=== PATIENT | male | born 1955 | race Caucasian/White ===

== ENCOUNTER 2017-02-17 20:08 | Observation (INO) | payer SELFPAY ==
[~2017-02-17] VITALS: Ht 182.9 cm; Wt 94.3 kg
[2017-02-17] MEDS ORDERED: VALS320T PO (20:47)
[2017-02-17] MEDS ORDERED: ASPI325T4 PO (20:47)
[2017-02-17] MEDS ORDERED: [UNRECOGNIZED DRUG - OTHER] PO (20:55)
[2017-02-17] MEDS ORDERED: SODIUM CHLORIDE 0.9% 1000ML 1,000 ML IV STA (21:02)
[2017-02-17 21:28] LABS: BASO % 0.2 %; BASO ABS # 0.02 K/uL (0-0.2); COMPLETE YES; EOS % 0.6 %; HEMATOCRIT 45.1 % (42-52); IG% 0.2 %; LYMPH ABS # 1.24 K/uL (1.2-3.4); MEAN CELL VOLUME 88.3 fL (80-100); MEAN CORPUSCULAR HEMOGLOBIN 30.3 pg (25-34); MEAN CORPUSCULAR HGB CONC 34.4 g/dl (32-36); MEAN PLATELET VOLUME 9.6 fL (7.4-10.4); MONO % 6.4 %; NEUT % 77.6 %; PLATELET COUNT 218 K/uL (130-400); RED BLOOD COUNT 5.11 M/uL (4.7-6.1); WHITE BLOOD COUNT 8.27 K/uL (4.8-10.8)
--- NOTE | 2017-02-17 21:42 | DIAGNOSTIC IMAGING REPORT ---
HEAD CT NONCONTRAST CT DOSE: 614.27 mGy.cm HISTORY: Altered mental status. TECHNIQUE: Multiaxial CT images of the head were performed without the use of intravenous contrast. Automated exposure control was utilized for this study. A dose lowering technique was utilized adhering to the principles of ALARA. Comparison: None. Findings: The paranasal sinuses and mastoid air cells are clear. The calvarium and skull base are intact. The ventricles and sulci are within normal limits. There is no mass, hematoma, midline shift, or acute infarct. Impression: No acute intracranial abnormality. Electronically signed by: Jeff Hinson M.D. 02/17/2017 9:40 PM Dictated Date/Time: 02/17/2017 9:38 PM
[2017-02-17 21:50] LABS: ALT/SGPT 27 U/L (12-78); BLOOD UREA NITROGEN 24 mg/dl (7-18); BUN/CREATININE RATIO 21.5 (10-20); CALCIUM 9.4 mg/dl (8.5-10.1); CARBON DIOXIDE 29 mmol/L (21-32); CHLORIDE 101 mmol/L (98-107); GLUCOSE 95 mg/dl (70-99); POTASSIUM 4.3 mmol/L (3.5-5.1); SODIUM 136 mmol/L (136-145)
[2017-02-17 21:54] LABS: ALKALINE PHOSPHATASE 93 U/L (45-117); AST/SGOT 22 U/L (15-37)
[2017-02-17 22:39] LABS: URINE APPEARANCE CLEAR (CLEAR); URINE BILIRUBIN NEG (NEG); URINE COLOR YELLOW; URINE EPITHELIAL CELL AUTO 0-5 /lpf (0-5); URINE NITRITE NEG (NEG); URINE SPECIFIC GRAVITY 1.016 (1.000-1.030); UROBILINOGEN NEG (NEG); ZZUR CULT IF INDIC CLEAN CATCH NO
[2017-02-17 22:40] LABS: MANUAL MICROSCOPIC REQUIRED? NO; REVIEW REQ? NO
[2017-02-18] MEDS ORDERED: ONDANSETRON INJ 2 MG/ML 2 ML VIAL IV PRN
[2017-02-18] MEDS ORDERED: NITROGLYCERIN 0.4 MG SL PER TAB CHARGE SL PRN
[2017-02-18] MEDS ORDERED: OXYCODONE/ACETAMINOPHEN 5-325 TAB PO PRN
[2017-02-18] MEDS ORDERED: ACETAMINOPHEN 325 MG TAB PO PRN
[2017-02-18 00:30] VITALS: BP 158/79; PULSE 85; TEMP 37; O2SAT 98; Ht 182.9 cm; Wt 94.3 kg
[2017-02-18] MEDS ORDERED: SODIUM CHLORIDE 0.9% 1000ML 1,000 ML IV ONE (01:00)
[2017-02-18] MEDS ORDERED: PATIENT'S HEIGHT AND/OR WEIGHT NEEDED SCH (01:00)
[2017-02-18 01:13] LABS: PROTHROMBIN TIME (PATIENT) 10.7 SECONDS (9.0-12.0)
[2017-02-18] MEDS ORDERED: IV FLUIDS COMPLETED PRN (01:30)
--- NOTE | 2017-02-18 03:06 | EMERGENCY ROOM VISIT NOTE ---
History Report prepared by Scribe: Odalys Devlin Under the Supervision of: Dr. Sebastián Angelo D.O. First contact with patient: 20:39 Chief Complaint: NEURO SYMPTOMS Stated Complaint: DISORIENTED, LOSS OF MEMORY History of Present Illness The patient is a 61 year old male who presents to the Emergency Room with complaints of persistent neurologic symptoms that started earlier this afternoon. He is accompanied by his and son. His son reports they went cycling this afternoon and when they came back, the patient did not remember what happened over the past 24 hours. He could not remember that he went on a cycling trip today or that he is flying back to [place] this coming Monday after spending 3 weeks here in [place]. The patient denies any recent falls or injuries. He also denies any headache, change in vision, fevers, chest pain, shortness of breath, nausea, vomiting, diarrhea, pain with urination, melena or weakness or numbness in his arms or legs. He admits to a history of hypertension, hyperlipidemia and has undergone an appendectomy. Source of History: patient Onset: This afternoon Position: other (global) Quality: other (neurologic symptoms) Timing: other (persistent) Associated Symptoms: No fevers, No headache, No chest pain, No SOB, No nausea, No vomiting, No diarrhea, No urinary symptoms, No weakness (in arms or legs), No numbness (in arms or legs) Review of Systems See HPI for pertinent positives & negatives. A total of 10 systems reviewed and were otherwise negative. Past Medical & Surgical Medical Problems: (1) Hyperlipemia (2) Hypertension (3) Transient amnesia Surgical Problems: (1) History of appendectomy Family History Hyperlipidemia Hypertension Social History Smoking Status: Never Smoker Alcohol Use: occasionally Drug Use: none Marital Status: Housing Status: lives with family Occupation Status: employed Current/Historical Medications Scheduled Aspirin (Aspirin), 250 MG PO DAILY Valsartan (Diovan), 320 MG PO DAILY [Lercandipin], 20 MG PO DAILY Allergies Coded Allergies: No Known Allergies (Unverified , 02/17/17) Physical Exam Vital Signs Date Time Temp Pulse Resp B/P (MAP) Pulse Ox O2 Delivery O2 Flow Rate FiO2 02/17/17 22:22 82 18 176/91 96 Room Air 02/17/17 20:11 36.4 90 18 173/93 100 Room Air Physical Exam GENERAL: Patient is alert, sitting up in bed, well appearing, well nourished, no distress, non-toxic EYE EXAM: normal conjunctiva, PERRL and EOM's intact OROPHARYNX: no exudate, no erythema, lips, buccal mucosa, and tongue normal and mucous membranes are moist NECK: supple, no nuchal rigidity, no adenopathy, non-tender LUNGS: Clear to auscultation. Normal chest wall mechanics HEART: no murmurs, S1 normal and S2 normal ABDOMEN: abdomen soft, non-tender, normo-active bowel sounds, no masses, no rebound or guarding. BACK: Back is symmetrical on inspection and there is no deformity, no midline tenderness, no CVA tenderness. SKIN: no rashes and no bruising UPPER EXTREMITIES: upper extremities are grossly normal. LOWER EXTREMITIES: No pitting edema. NEURO EXAM: Normal sensorium, cranial nerves II-XII intact, normal speech, no weakness of arms, no weakness of legs. Negative drift. Finger to nose intact. Medical Decision & Procedures ER Provider Diagnostic Interpretation: Radiology results as stated below per my review and the radiologist's interpretation: HEAD CT NONCONTRAST CT DOSE: 614.27 mGy.cm HISTORY: Altered mental status. TECHNIQUE: Multiaxial CT images of the head were performed without the use of intravenous contrast. Automated exposure control was utilized for this study. A dose lowering technique was utilized adhering to the principles of ALARA. Comparison: None. Findings: The paranasal sinuses and mastoid air cells are clear. The calvarium and skull base are intact. The ventricles and sulci are within normal limits. There is no mass, hematoma, midline shift, or acute infarct. Impression: No acute intracranial abnormality. Electronically signed by: Jeff Hinson M.D. 02/17/2017 9:40 PM Laboratory Results 02/17/17 21:15 Red Blood Count 5.11, Mean Corpuscular Volume 88.3, Mean Corpuscular Hemoglobin 30.3, Mean Corpuscular Hemoglobin Concent 34.4, Mean Platelet Volume 9.6, Neutrophils (%) (Auto) 77.6, Lymphocytes (%) (Auto) 15.0, Monocytes (%) (Auto) 6.4, Eosinophils (%) (Auto) 0.6, Basophils (%) (Auto) 0.2, Neutrophils # (Auto) 6.41, Lymphocytes # (Auto) 1.24, Monocytes # (Auto) 0.53, Eosinophils # (Auto) 0.05, Basophils # (Auto) 0.02 02/17/17 21:15 Test 02/17/17 21:15 02/17/17 22:25 02/17/17 22:44 White Blood Count 8.27 K/uL (4.8-10.8) Red Blood Count 5.11 M/uL (4.7-6.1) Hemoglobin 15.5 g/dL (14.0-18.0) Hematocrit 45.1 % (42-52) Mean Corpuscular Volume 88.3 fL (80-100) Mean Corpuscular Hemoglobin 30.3 pg (25-34) Mean Corpuscular Hemoglobin Concent 34.4 g/dl (32-36) Platelet Count 218 K/uL (130-400) Mean Platelet Volume 9.6 fL (7.4-10.4) Neutrophils (%) (Auto) 77.6 % Lymphocytes (%) (Auto) 15.0 % Monocytes (%) (Auto) 6.4 % Eosinophils (%) (Auto) 0.6 % Basophils (%) (Auto) 0.2 % Neutrophils # (Auto) 6.41 K/uL (1.4-6.5) Lymphocytes # (Auto) 1.24 K/uL (1.2-3.4) Monocytes # (Auto) 0.53 K/uL (0.11-0.59) Eosinophils # (Auto) 0.05 K/uL (0-0.5) Basophils # (Auto) 0.02 K/uL (0-0.2) RDW Standard Deviation 46.4 fL (36.4-46.3) RDW Coefficient of Variation 14.2 % (11.5-14.5) Immature Granulocyte % (Auto) 0.2 % Immature Granulocyte # (Auto) 0.02 K/uL (0.00-0.02) Prothrombin Time 10.7 SECONDS (9.0-12.0) Prothromb Time International Ratio 1.0 (0.9-1.1) Anion Gap 6.0 mmol/L (3-11) Estimated GFR () 82.9 Estimated GFR (Non- 71.6 BUN/Creatinine Ratio 21.5 (10-20) Calcium Level 9.4 mg/dl (8.5-10.1) Total Bilirubin 0.3 mg/dl (0.2-1) Direct Bilirubin < 0.1 mg/dl (0-0.2) Aspartate Amino Transf (AST/SGOT) 22 U/L (15-37) Alanine Aminotransferase (ALT/SGPT) 27 U/L (12-78) Alkaline Phosphatase 93 U/L (45-117) Total Creatine Kinase 105 U/L (39-308) Troponin I < 0.015 ng/ml (0-0.045) Total Protein 8.6 gm/dl (6.4-8.2) Albumin 4.7 gm/dl (3.4-5.0) Lipase 1025 U/L (73-393) Urine Color YELLOW Urine Appearance CLEAR (CLEAR) Urine pH 5.0 (4.5-7.5) Urine Specific Baker 1.016 (1.000-1.030) Urine Protein NEG (NEG) Urine Glucose (UA) NEG (NEG) Urine Ketones TRACE (NEG) Urine Occult Blood NEG (NEG) Urine Nitrite NEG (NEG) Urine Bilirubin NEG (NEG) Urine Urobilinogen NEG (NEG) Urine Leukocyte Esterase NEG (NEG) Urine WBC (Auto) 1-5 /hpf (0-5) Urine RBC (Auto) 0-4 /hpf (0-4) Urine Hyaline Casts (Auto) 0 /lpf (0-5) Urine Epithelial Cells (Auto) 0-5 /lpf (0-5) Urine Bacteria (Auto) NEG (NEG) Ethyl Alcohol mg/dL < 3.0 mg/dl (0-3) Laboratory results per my review. Medications Administered Medications (Trade) Dose Ordered Sig/Amita Route Start Time Stop Time Status Last Admin Dose Admin Sodium Chloride 1,000 ml @ 999 mls/hr Q1H1M STAT IV 02/17/17 21:02 02/17/17 22:02 DC 02/17/17 21:25 999 MLS/HR ECG Indication: altered mental status Rate (beats per minute): 84 Rhythm: sinus rhythm Findings: no acute ischemic change, no ectopy, other (normal axis) ED Course ED COURSE: Vital signs were reviewed and showed the patient is hypertensive. The patients medical record was reviewed The above diagnostic studies were performed and reviewed. ED treatments and interventions as stated above. 2053: The patient was evaluated in room B2. A complete history and physical examination was performed. 2101: NSS 1000 ml @ 999 mls/hr IV. 2231: Upon reevaluation, the patient is feeling well and resting comfortably. I discussed my findings with the patient and he and his family understand and agree with the treatment plan. 2317: I discussed the patients case with Alanis Lozoya. The patient will be further evaluated. Based on the patients age, coexisting illnesses, exam and lab findings the decision to treat as an inpatient was made. The patient remained stable while under my care. The patient will be evaluated for further management. Medical Decision Differential diagnoses includes but is not limited to toxic, metabolic, infectious, traumatic, cardiac, neurologic, hematologic, psychiatric and inflammatory etiologies. The patient is a 61-year-old male from [facility] presents the ER for global amnesia. No recollection for the past 24-48 hours. Otherwise he has no complaints. Neurologically intact currently. CT head was negative. Labs were unremarkable with the exception of a lipase greater than 1000. He has no abdominal pain. Alcohol was negative. Uncertain of the true causes of his amnesia at this time. Do not favor alcohol. Patient was updated at bedside and he was admitted to internal medicine for further workup of his global amnesia. Medication Reconcilliation Current Medication List: was personally reviewed by me Blood Pressure Screening Patient's blood pressure: Elevated blood pressure Blood pressure disposition: Elevated BP felt to be situational Consults Time Called: 2314 Consulting Physician: Alanis Lozoya Returned Call: [phone] I discussed the patients case with Alanis Lozoya. The patient will be further evaluated. Impression Primary Impression: Transient amnesia Additional Impression: Pancreatitis Scribe Attestation The scribe's documentation has been prepared under my direction and personally reviewed by me in its entirety. I confirm that the note above accurately reflects all work, treatment, procedures, and medical decision making performed by me. Departure Information Dispostion Being Evaluated By Hospitalist Referrals No Doctor, Assigned (PCP) Patient Instructions My [facility] Problem Qualifiers Additional Impression: Pancreatitis Chronicity: acute Pancreatitis type: unspecified pancreatitis type Acute pancreatitis complication: unspecified Qualified Codes: K85.90 - Acute pancreatitis without necrosis or infection, unspecified
[2017-02-18 03:30] VITALS: BP 125/67; PULSE 61; TEMP 36.6; O2SAT 97
[2017-02-18 06:33] LABS: BASO % 0.2 %; BASO ABS # 0.01 K/uL (0-0.2); COMPLETE YES; HEMATOCRIT 39.9 % (42-52); IG% 0.2 %; LYMPH % 28.2 %; LYMPH ABS # 1.72 K/uL (1.2-3.4); MEAN CELL VOLUME 89.3 fL (80-100); MEAN CORPUSCULAR HEMOGLOBIN 29.8 pg (25-34); MEAN CORPUSCULAR HGB CONC 33.3 g/dl (32-36); MEAN PLATELET VOLUME 9.5 fL (7.4-10.4); MONO % 10.6 %; NEUT % 59.8 %; PLATELET COUNT 200 K/uL (130-400); RED BLOOD COUNT 4.47 M/uL (4.7-6.1); WHITE BLOOD COUNT 6.11 K/uL (4.8-10.8)
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
[2017-02-18 07:12] LABS: BUN/CREATININE RATIO 21.3 (10-20); CALCIUM 8.3 mg/dl (8.5-10.1); CREATININE 0.8 mg/dl (0.60-1.40); POTASSIUM 4.2 mmol/L (3.5-5.1)
[2017-02-18 08:21] VITALS: BP 120/72; PULSE 64; TEMP 36.7; O2SAT 98
[2017-02-18] MEDS ORDERED: VALSARTAN 80 MG TAB PO SCH (09:00)
[2017-02-18] MEDS ORDERED: ENOXAPARIN 40 MG/0.4 ML SYR SC SCH (09:00)
--- NOTE | 2017-02-18 09:47 | Progress Note ---
Internal Med Progress Note Date of Service: Feb 18, 2017. Provider Documentation: SUBJECTIVE: Seen and examined at bedside States confusion resolved Denies chest pain, SOB, dizziness, weakness, numbness, vertigo, speech problems , change in vision Also denies LOC, head trauma, seizure like activity Offers no complaints OBJECTIVE: Vital Signs-as noted below Physical Exam: Vitals signs as noted above General Appearance:Moderately built and nourished, no apparent distress Head: normocephalic, Atraumatic Eyes: normal inspection, EOMI, PERRL Neck: supple, Trachea midline Respiratory/Chest: Normal breath sounds, CTA Cardiovascular: S1, S2, No murmur Abdomen/GI:Soft, Non tender, Bowel sounds present Extremities/Musculoskelatal:normal inspection, no edema Neurologic/Psych:grossly no focal neurological deficits Skin: normal color, warm Lab data as noted below. ASSESSMENT & PLAN: Transient global amnesia: Unclear etiology: DD: Hypoglycemia, dehydration, TIA Patient states he was in lot of stress while biking yesterday and was not prepared Admits to skipping dinners No focal deficits on exam CT head: No acute process MRI/MRA head:as below Discussed with Neurology Neuro checks Patient reports taking aspirin once every 2 weeks Advised to take Aspirin 81mg daily Hypertension: Continue home meds Hyperlipidemia: Stable Past tobacco abuse DVT Px: Lovenox SQ Code Status: Full code Disposition: Plan to discharge home today Follow up with from [facility] in 1 week Seek immediate medical attention if your symptoms reoccur or worsen Family Patient's son:[phone]. PROCEDURES: MRI Brain: 1. No acute intracranial abnormality. Negative for hemorrhage or acute ischemia. 2. Mild chronic microvascular ischemic changes. 3. Partially empty sella incidentally noted. MRA Brain: Unremarkable MRA of the head without aneurysm, high-grade stenosis or proximal branch occlusion Vital Signs: Date Time Temp Pulse Resp B/P (MAP) Pulse Ox O2 Delivery O2 Flow Rate FiO2 02/18/17 12:35 36.7 77 16 154/71 (98) 98 Room Air 02/18/17 11:15 Room Air 02/18/17 08:21 36.7 64 20 120/72 (88) 98 Room Air 02/18/17 08:00 Room Air 02/18/17 04:00 Room Air 02/18/17 03:30 36.6 61 16 125/67 (86) 97 Room Air 02/18/17 00:30 37.0 85 15 158/79 98 T-piece 02/18/17 00:18 81 18 152/83 97 02/18/17 00:12 81 18 152/83 97 Room Air 02/17/17 22:22 82 18 176/91 96 Room Air 02/17/17 20:11 36.4 90 18 173/93 100 Room Air Lab Results: Results Past 24 Hours Test 02/17/17 21:15 02/17/17 22:25 02/17/17 22:44 02/18/17 05:59 Range/Units White Blood Count 8.27 6.11 4.8-10.8 K/uL Red Blood Count 5.11 4.47 4.7-6.1 M/uL Hemoglobin 15.5 13.3 14.0-18.0 g/dL Hematocrit 45.1 39.9 42-52 % Mean Corpuscular Volume 88.3 89.3 80-100 fL Mean Corpuscular Hemoglobin 30.3 29.8 25-34 pg Mean Corpuscular Hemoglobin Concent 34.4 33.3 32-36 g/dl Platelet Count 218 200 130-400 K/uL Mean Platelet Volume 9.6 9.5 7.4-10.4 fL Neutrophils (%) (Auto) 77.6 59.8 % Lymphocytes (%) (Auto) 15.0 28.2 % Monocytes (%) (Auto) 6.4 10.6 % Eosinophils (%) (Auto) 0.6 1.0 % Basophils (%) (Auto) 0.2 0.2 % Neutrophils # (Auto) 6.41 3.66 1.4-6.5 K/uL Lymphocytes # (Auto) 1.24 1.72 1.2-3.4 K/uL Monocytes # (Auto) 0.53 0.65 0.11-0.59 K/uL Eosinophils # (Auto) 0.05 0.06 0-0.5 K/uL Basophils # (Auto) 0.02 0.01 0-0.2 K/uL RDW Standard Deviation 46.4 47.3 36.4-46.3 fL RDW Coefficient of Variation 14.2 14.4 11.5-14.5 % Immature Granulocyte % (Auto) 0.2 0.2 % Immature Granulocyte # (Auto) 0.02 0.01 0.00-0.02 K/uL Prothrombin Time 10.7 9.0-12.0 SECONDS Prothromb Time International Ratio 1.0 0.9-1.1 Sodium Level 136 141 136-145 mmol/L Potassium Level 4.3 4.2 3.5-5.1 mmol/L Chloride Level 101 107 98-107 mmol/L Carbon Dioxide Level 29 28 21-32 mmol/L Anion Gap 6.0 6.0 3-11 mmol/L Blood Urea Nitrogen 24 17 7-18 mg/dl Creatinine 1.10 0.80 0.60-1.40 mg/dl Estimated GFR () 82.9 111.0 Estimated GFR (Non- 71.6 95.7 BUN/Creatinine Ratio 21.5 21.3 10-20 Random Glucose 95 79 70-99 mg/dl Calcium Level 9.4 8.3 8.5-10.1 mg/dl Total Bilirubin 0.3 0.2-1 mg/dl Direct Bilirubin < 0.1 0-0.2 mg/dl Aspartate Amino Transf (AST/SGOT) 22 15-37 U/L Alanine Aminotransferase (ALT/SGPT) 27 12-78 U/L Alkaline Phosphatase 93 45-117 U/L Total Creatine Kinase 105 39-308 U/L Troponin I < 0.015 0-0.045 ng/ml Total Protein 8.6 6.4-8.2 gm/dl Albumin 4.7 3.4-5.0 gm/dl Lipase 1025 174 73-393 U/L Urine Color YELLOW Urine Appearance CLEAR CLEAR Urine pH 5.0 4.5-7.5 Urine Specific [place] 1.016 1.000-1.030 Urine Protein NEG NEG Urine Glucose (UA) NEG NEG Urine Ketones TRACE NEG Urine Occult Blood NEG NEG Urine Nitrite NEG NEG Urine Bilirubin NEG NEG Urine Urobilinogen NEG NEG Urine Leukocyte Esterase NEG NEG Urine WBC (Auto) 1-5 0-5 /hpf Urine RBC (Auto) 0-4 0-4 /hpf Urine Hyaline Casts (Auto) 0 0-5 /lpf Urine Epithelial Cells (Auto) 0-5 0-5 /lpf Urine Bacteria (Auto) NEG NEG Ethyl Alcohol mg/dL < 3.0 0-3 mg/dl Est Creatinine Clear Calc Drug Dose 114.1 ml/min
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
[2017-02-18 12:35] VITALS: BP 154/71; PULSE 77; TEMP 36.7; O2SAT 98
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
[2017-02-18] MEDS ORDERED: ASPI1CHW12 PO (12:57)
--- NOTE | 2017-02-18 12:59 | Discharge Summary ---
Discharge Summary Date of Service Feb 18, 2017. Discharge Summary Admission Date: Feb 17, 2017 at 23:48 Discharge Date: Feb 18, 2017 Discharge Disposition: Home Principal Diagnosis: Transient global Amnesia Procedures: MRI Brain: 1. No acute intracranial abnormality. Negative for hemorrhage or acute ischemia. 2. Mild chronic microvascular ischemic changes. 3. Partially empty sella incidentally noted. MRA Brain: Unremarkable MRA of the head without aneurysm, high-grade stenosis or proximal branch occlusion CT head: No acute intracranial abnormality. Consultations: Neurology Pending Studies/Follow-Up: Follow up with from [facility] in 1 week Seek immediate medical attention if your symptoms reoccur or worsen Medication Reconciliation Changed Medications: Aspirin (Aspirin 81 Low Dose) 81 Mg Chw 81 MG PO DAILY for 30 Days (Changed from: Aspirin (Aspirin) 325 Mg Tab 250 Mg PO DAILY) Continued Medications: Valsartan (Diovan) 320 Mg Tab 320 MG PO DAILY, TAB [Lercandipin] () 20 MG PO DAILY Admission Information HPI (per Admitting provider): PRIMARY CARE PHYSICIAN: Dr. John from [facility]. CHIEF COMPLAINT: Transient amnesia, could not remember things. HISTORY OF PRESENT ILLNESS: History obtained from patient and family. Medical history significant for hypertension, hyperlipidemia, past tobacco abuse. Patient has been in the [place] the last 3 weeks to visit their new grandchild in [place], [place]. Yesterday, patient along with his and son had a bike tour, a little strenuous due to [place], a few drinks around lunchtime. Patient soaked in sweat as per . They arrived home last night. Upon arrival at the son's home, the patient looked confused, could not remember the layout of the house, asking about stuff that he knew previously. No chest pain, no shortness of breath, no headache. No abdominal pain. Patient brought to the Emergency Room. At the Emergency Room, the patient was noted to be more oriented, no recollection of amnestic event. No previous episodes. Physical Exam (per Admitting): PHYSICAL EXAMINATION: VITAL SIGNS: Blood pressure was noted to be 150/80, pulse rate 81, RR 18, temperature 37, sats 97 on room air. GENERAL: Noted to be pleasant, no respiratory distress. SKIN: Normal color. HEENT: [place] palpebral conjunctivae. Dry mucosa. NECK: No JVD. Supple. CHEST: Clear to auscultation. HEART: Regular rate and rhythm. ABDOMEN: Soft. EXTREMITIES: No edema. No tenderness. NEUROLOGIC: No gross focality. Oriented. Hospital Course Transient global amnesia: Unclear etiology: DD: Hypoglycemia, dehydration, TIA Patient states he was in lot of stress while biking yesterday and was not prepared Admits to skipping dinners No focal deficits on exam CT head: No acute process MRI/MRA head:as below Discussed with Neurology Neuro checks Patient reports taking aspirin once every 2 weeks Continue Aspirin 81mg daily Hypertension: Continue home meds Hyperlipidemia: Stable Past tobacco abuse DVT Px: Lovenox SQ Code Status: Full code Disposition: Plan to discharge home today Follow up with from [facility] in 1 week Seek immediate medical attention if your symptoms reoccur or worsen Family Patient's son:[phone]. PROCEDURES: MRI Brain: 1. No acute intracranial abnormality. Negative for hemorrhage or acute ischemia. 2. Mild chronic microvascular ischemic changes. 3. Partially empty sella incidentally noted. MRA Brain: Unremarkable MRA of the head without aneurysm, high-grade stenosis or proximal branch occlusion Total time spent on discharge = This includes examination of the patient, discharge planning, medication reconciliation, and communication with other providers. Discharge Instructions Discharge Instructions Date of Service Feb 18, 2017. Admission Reason for Admission: Transient Amnesia Discharge Discharge Diagnosis / Problem: Transient global Amnesia Discharge Goals Goal(s): Decrease discomfort, Improve function Activity Recommendations Activity Limitations: resume your previous activity Exercise/Sports Limitations: as tolerated Driving or Machine Use: Do not drive until cleared by your doctor . Instructions / Follow-Up Instructions / Follow-Up Follow up with from [facility] in 1 week Seek immediate medical attention if your symptoms reoccur or worsen Current Hospital Diet Patient's current hospital diet: AHA Diet (Heart Healthy) Discharge Diet Recommended Diet: AHA Diet (Heart Healthy) Pending Studies Studies pending at discharge: no Medical Emergencies . Who to Call and When: Medical Emergencies: If at any time you feel your situation is an emergency, please call 911 immediately. . Non-Emergent Contact Non-Emergency issues call your: Primary Care Provider, Neurologist Call Non-Emergent contact if: you have a fever, your pain is not controlled, your pain is worsening, your pain is unusual for you, your pain is concerning you, you have any medication questions Seek immediate medical attention if your symptoms reoccur or worsen . . "Provider Documentation" section prepared by Cristi Holloway. . VTE Core Measure Inpt VTE Proph given/why not?: Enoxaparin (Lovenox)SQ
[2017-02-18 15:13] VITALS: BP 154/71; PULSE 77; TEMP 36.7; O2SAT 98
--- NOTE | 2017-02-18 22:04 | PROGRESS NOTE ---
DATE: 02/18/2017 FOR: Dr. Holloway. 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 He presented to the Emergency Room yesterday for evaluation of a 2-hour interval of time during which he was absolutely amnestic. He yesterday was pretty active physically had gone along with a bike ride with his and son was pretty exhausted going up pills and had a few alcoholic beverages around lunchtime was quite soaked and sweat and then upon arrival of son's home, appeared to be confused, could not remember layout of the home, kept asking the same question and apparently became alarmed, there were no other symptoms. He denied a headache. He was brought to the Emergency Room and by that time, his memory was clearing up and has been fine ever since, although he still has an absolute whole of about 2 hours' time for which he has no recall. PAST MEDICAL HISTORY: Reveals some hypertension, hyperlipidemia, past tobacco abuse. MEDICATION LIST: Includes aspirin, although I am not sure how regularly he takes it; Diovan, Lercanidipine and a statin. ALLERGIES: He has no known drug allergies. FAMILY HISTORY: Positive for heart disease and his son has migraines. REVIEW OF SYSTEMS: Unremarkable, but upon questioning, he will admit to having episodes of visual obscuration with scintillating type phenomenon without any headaches and I suspect these are migraines without aura. Otherwise, the review of systems is unremarkable same from the past medical history. PHYSICAL EXAMINATION: VITAL SIGNS: On admission revealed a blood pressure 150/80, pulse of 81, respirations 18. He was afebrile. O2 saturations were normal 97% on room air. GENERAL: He was awake, alert, oriented in 3 spheres, not appear to be in any distress. NECK: There were no carotid bruits. LUNGS: Clear. HEART: Had a regular rhythm. No murmurs were appreciated. ABDOMEN: Soft, nontender, and there was no peripheral edema. NEUROLOGICAL: On exam neurologically today, he is awake, alert, oriented in 3 spheres. He has normal gross cranial neuropathies. There is no tremor, tics, choreiform activity, drift or pronation sign. His reflexes are fine. Toes are downgoing. No Anna signs were seen. LABORATORY STUDIES: Reveal a hemoglobin of 15, hematocrit of 45, white count was normal. Platelets were normal. Sodium, potassium, chloride were normal. Glucose was 95. Urinalysis with trace ketones and ethyl alcohol level was less than 3. 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 IMPRESSION AND PLAN: I agree with the diagnosis of transient global amnesia here. I suspect this may well have had a migrainous basis, but he certainly has vascular risk factors as well. My conversation with him suggests he does not take aspirin on a regular basis, but I could be incorrect and Dr. Holloway and I discussed the case. My recommendations would be that he go home on at least an 81 mg aspirin a day and continue his current medications. In the ideal world, he would get an EEG just to be sure that the event was not due to a partial seizure, and an echocardiogram to be certain that there are no potentially sources f emboli in the cardiac chambers but inmy experience these two potential explanations for the current symptoms would be very unusual. We certainly have a little justification to hold him here in the hospital and get an EEG. He has a plane flight scheduled for tomorrow and will be back in [place] late tomorrow night. I discussed the fact that he probably ought to keep active on the plane, which is good advice for anyone with vascular risk factors and he may need to put some compression stockings on just to be on the safe side, but beyond this I would not have any other recommendations. ANT
== END 2017-02-18 15:45 | disposition home or self-care (01) ==
LOC: C.EDB 20:11 → C.2T 23:48 → ENRESERV 02-18 00:01
PROVIDERS: ADMIT Internal Medicine; ATTEND Internal Medicine
DX: G45.4 Transient global amnesia (principal); E78.5 Hyperlipidemia, unspecified; I10 Essential (primary) hypertension; Z82.49 Family history of ischemic heart disease and other diseases of the circulatory system; Z79.82 Long term (current) use of aspirin; Z79.899 Other long term (current) drug therapy; Z87.891 Personal history of nicotine dependence